=== PATIENT | male | born 1980 | race Caucasian/White ===

== ENCOUNTER 2017-04-09 15:55 | Emergency (ER) | payer BC ==
[2017-04-09] MEDS ORDERED: Ketorolac 60 MG/2 ML SDV IM ONE (16:22)
--- NOTE | 2017-04-09 16:28 | EDM.PDOC ---
ED HPI GENERAL MEDICAL PROBLEM - General Chief Complaint: Lower Extremity Injury/Pain Stated Complaint: RIGHT FOOT PAIN Time Seen by Provider: 04/09/17 16:16 - History of Present Illness INITIAL COMMENTS - FREE TEXT/NARRATIVE: HISTORY AND PHYSICAL: History of present illness: Patient is a 36-year-old male who presents with complaints of right foot pain after a 45-50 pound weight dropped on it yesterday while at work. He says that he felt pain initially and had a continue working and it swelled up and he tried to elevate and ice it and took some ibuprofen but it is still painful so he is here for evaluation. He has no proximal ankle or leg pain and no neurosensory changes in the foot. Patient says he was wearing steel toed boots so the toes do not hurt but the midfoot does. The patient has no other systemic complaints pre-or post this injury. Review of systems: As per history of present illness and below otherwise all systems reviewed and negative. Past medical history: As per history of present illness and as reviewed below otherwise noncontributory. Surgical history: As per history of present illness and as reviewed below otherwise noncontributory. Social history: No reported history of drug or alcohol abuse. Family history: As per history of present illness and as reviewed below otherwise noncontributory. Physical exam: General: Well-developed overweight male who is nontoxic and speaking clearly and easily in the ED. Vital signs been reviewed by me HEENT: Atraumatic, normocephalic, negative for conjunctival pallor or scleral icterus, mucous membranes moist, throat clear, neck supple, nontender, trachea midline. Lungs: Clear to auscultation, breath sounds equal bilaterally, chest nontender. Heart: S1S2, regular rate and rhythm no overt murmurs Abdomen: Soft, nondistended, nontender. NABS Pelvis: Stable nontender. Genitourinary: Deferred. Rectal: Deferred. Extremities: Atraumatic and full range of motion of all extremities with the exception of the right foot where there is soft tissue diffuse swelling on the dorsal aspect of the midfoot with some swelling of the toes but there is no tenderness at the toes. There is diffuse tenderness in the midfoot without crepitus or bony deformities. The ankle and proximal leg and the air without tenderness or defects. Neurovascular is intact in the foot. The legs are, negative for cords or calf pain. Neurovascular unremarkable. Neuro: Awake, alert, oriented. Cranial nerves II through XII unremarkable. Cerebellum unremarkable. Motor and sensory unremarkable throughout. Exam nonfocal. Diagnostics: X-ray right foot Therapeutics: Toradol ortho boot crutches Impression: Right foot contusion Definitive disposition and diagnosis as appropriate pending reevaluation and review of above. Right Foot Pain Score (Numeric/FACES): 9 - Related Data Allergies Allergy/AdvReac Type Severity Reaction Status Date / Time codeine Allergy Cannot Verified 04/09/17 16:09 Remember Home Meds: Home Meds . [No Known Home Meds] 01/07/14 [History] Past Medical History - Past Health History Medical/Surgical History: Denies Medical/Surgical History Social & Family History - Family History Family Medical History: Noncontributory - Tobacco Use Smoking Status *Q: Current Every Day Smoker Years of Tobacco use: 22 Packs/Tins Daily: 1 Used Tobacco, but Quit: Yes Month Tobacco Last Used: October - Alcohol Use Days Per Week of Alcohol Use: 0 - Recreational Drug Use Recreational Drug Use: No Review of Systems - Review of Systems Review Of Systems: ROS reveals no pertinent complaints other than HPI. ED EXAM, GENERAL - Physical Exam Exam: See Below (See dictation) Course - Vital Signs Last Recorded V/S: Last Vital Signs Temp 36.7 C 04/09/17 16:09 Pulse 66 04/09/17 16:09 Resp 18 04/09/17 16:09 BP 132/87 04/09/17 16:09 Pulse Ox 97 04/09/17 16:09 - Orders/Labs/Meds Orders: Active Orders 24 hr Category Date Time Status Foot Comp Min 3V Rt [CR] Stat Exams 04/09/17 16:22 Taken DME for Discharge [COMM] Stat Oth 04/09/17 17:24 Ordered Meds: Medications Discontinued Medications Generic Name Dose Route Start Last Admin Trade Name Freq PRN Reason Stop Dose Admin Ketorolac Tromethamine 60 mg 04/09/17 16:22 04/09/17 16:43 Toradol IM 04/09/17 16:23 60 mg ONETIME ONE Administration Departure - Departure Time of Disposition: 17:25 Disposition: Home, Self-Care 01 Condition: Good Clinical Impression: Contusion of foot Qualifiers: Encounter type: initial encounter Laterality: right Qualified Code(s): S90.31XA - Contusion of right foot, initial encounter - Discharge Information Referrals: PCP,None [Primary Care Provider] - Forms: ED Department Discharge Additional Instructions: The following information is given to patients seen in the emergency department who are being discharged to home. This information is to outline your options for follow-up care. We provide all patients seen in our emergency department with a follow-up referral. The need for follow-up, as well as the timing and circumstances, are variable depending upon the specifics of your emergency department visit. If you don't have a primary care physician on staff, we will provide you with a referral. We always advise you to contact your personal physician following an emergency department visit to inform them of the circumstance of the visit and for follow-up with them and/or the need for any referrals to a consulting specialist. The emergency department will also refer you to a specialist when appropriate. This referral assures that you have the opportunity for followup care with a specialist. All of these measure are taken in an effort to provide you with optimal care, which includes your followup. Under all circumstances we always encourage you to contact your private physician who remains a resource for coordinating your care. When calling for followup care, please make the office aware that this follow-up is from your recent emergency room visit. If for any reason you are refused follow-up, please contact the [facility] emergency department at and ask to speak to the emergency department charge nurse. [facility] Specialty clinic- Podiatry [address] [place] [id number] Fax: [phone] Dr Zina Sheth [address] [place] [phone] Ice and elevate the area as much as possible and wear the ortho boot at all times loosening or removing when you're sleeping. Please use crutches as much as possible to prevent weightbearing. Please contact one of our gas specialist using the resources given to above for follow-up care of this injury. Use over- the-counter ibuprofen/Aleve for the inflammation and pain and add the stronger pain medication you have been prescribed as needed. Please only take the tramadol when you're at home and not ever at work or when driving. Return to ER as needed and as discussed - My Orders Last 24 Hours: My Active Orders 04/09/17 16:22 Foot Comp Min 3V Rt [CR] Stat 04/09/17 17:24 DME for Discharge [COMM] Stat - Assessment/Plan Last 24 Hours: My Active Orders 04/09/17 16:22 Foot Comp Min 3V Rt [CR] Stat 04/09/17 17:24 DME for Discharge [COMM] Stat
[2017-04-09 17:46] VITALS: BP 115/82
--- NOTE | 2017-04-10 10:53 | CR ---
EXAM DATE: 04/09/17 PATIENT'S AGE: 36 Patient: KARIN HATCH Facility: [place], [place] Site . Site : 1980 Study: XRay Extremity foot [id number]/[id number] 4:54:37 PM Ordering Physician: Yamilet Stewart Final Report: INDICATION: Dropped 45 lb weight on foot TECHNIQUE: Foot radiograph 3 views right COMPARISON: None FINDINGS: Bones: Alignment is normal. No acute fractures or aggressive bone lesions identified. Joint spaces: Unremarkable. No ankle effusion is seen. Soft tissues: Mild dorsal swelling noted. Kager`s fat pad is normal in appearance. The visualized Achilles` tendon is unremarkable. No radiopaque foreign bodies are seen. IMPRESSION: 1. No acute osseous injuries are noted. Dictated by: Travis Rivers MD @ 04/09/2017 17:16:11 (Electronic Signature) Report Signed by Proxy. SUKI
== END 2017-04-09 17:41 | disposition home or self-care (01) ==
LOC: MW.ED 15:55
DX: S90.31XA Contusion of right foot, initial encounter (principal); F17.210 Nicotine dependence, cigarettes, uncomplicated; Z88.5 Allergy status to narcotic agent; W20.8XXA Other cause of strike by thrown, projected or falling object, initial encounter
CPT/HCPCS: 73630; 96372; 99283; J1885

== ENCOUNTER 2017-12-27 07:53 | Emergency (ER) | payer BC ==
[2017-12-27] MEDS ORDERED: Sodium Chloride 0.9% 2.5 ML Syringe FLUSH PRN (08:16)
[2017-12-27] MEDS ORDERED: Sodium Chloride 0.9% 10 ML Syringe FLUSH PRN (08:16)
[2017-12-27] MEDS ORDERED: Ketorolac 30 MG/ML SDV IVPUSH ONE (08:16)
[2017-12-27] MEDS ORDERED: Sodium Chloride 0.9% 1,000 ML IV ONE (08:16)
--- NOTE | 2017-12-27 08:21 | EDM.PDOC ---
ED HPI GENERAL MEDICAL PROBLEM - General Chief Complaint: General Stated Complaint: LIGHT-HEADED, NAUSEATED, SHAKY Time Seen by Provider: 12/27/17 08:03 - History of Present Illness INITIAL COMMENTS - FREE TEXT/NARRATIVE: HISTORY AND PHYSICAL: History of present illness: Patient is a 37-year-old male who presents with complaints of 4 days of feeling run down intermittently lightheaded nasal pressure occasional cough and just ill feeling. The patient has no pre-existing medical problems but does work in the [email or web address] and is from [place]. He said the weather here has been upsetting him due to the dryness and he has not taken any rfrj-zeo-aoyulmi antihistamines or antiallergy meds. Patient has been using [id number]-[id number] Advil Cold and Sinus combination drug and does not feel it is helping. The patient has been eating normally and does admit he drinks large amounts of caffeine on a daily basis, Mountain Dew, and does not hydrate. He's had no abdominal pain vomiting diarrhea chest pain or shortness of breath. He is a smoker. He is not passing out or blacking out but has a generalized weak feeling without focality. He has no discrete headache but does have some pressure. The patient denies that he has had any fevers or actual sinus drainage. The patient says that he has had a scratchy throat and it is a little sore but that is not one of his main complaints. Review of systems: As per history of present illness and below otherwise all systems reviewed and negative. Past medical history: As per history of present illness and as reviewed below otherwise noncontributory. Surgical history: As per history of present illness and as reviewed below otherwise noncontributory. Social history: No reported history of drug or alcohol abuse. Family history: As per history of present illness and as reviewed below otherwise noncontributory. Physical exam: General: Well-developed well-nourished mildly overweight man who is nontoxic and vital signs are reviewed by me. He has a slight nasal quality to his voice HEENT: Atraumatic, normocephalic, pupils reactive, negative for conjunctival pallor or scleral icterus, mucous membranes moist, throat clear of exudates but there is posterior oral pharyngeal erythema, no cervical adenopathy or nuchal rigidity, uvula is midline,, neck supple, nontender, trachea midline. Nasal turbinates are boggy bilaterally but there is only minimal maxillary sinus tenderness on palpation and no frontal sinus tenderness Lungs: Clear to auscultation, breath sounds equal bilaterally, chest nontender. Heart: S1S2, regular rate and rhythm no overt murmurs. Abdomen: Soft, nondistended, nontender. NABS Pelvis: Deferred Genitourinary: Deferred. Rectal: Deferred. Extremities: Atraumatic, negative for cords or calf pain. Neurovascular unremarkable. Neuro: Awake, alert, oriented. Cranial nerves II through XII unremarkable. Cerebellum unremarkable. Motor and sensory unremarkable throughout. Exam nonfocal. Diagnostics: CBC CMP rapid strep Therapeutics: IV fluids Toradol Impression: Strep pharyngitis, sinusitis/lightheadedness , history of large caffeine use Definitive disposition and diagnosis as appropriate pending reevaluation and review of above. headache Pain Score (Numeric/FACES): 7 - Related Data Allergies Allergy/AdvReac Type Severity Reaction Status Date / Time codeine Allergy Cannot Verified 12/27/17 08:05 Remember Home Meds: Home Meds . [No Known Home Meds] 01/07/14 [History] Past Medical History - Past Health History Medical/Surgical History: Denies Medical/Surgical History - Infectious Disease History Infectious Disease History: Reports: None - Past Surgical History Musculoskeletal Surgical History: Reports: Other (See Below) Other Musculoskeletal Surgeries/Procedures:: back surgery Social & Family History - Family History Family Medical History: Noncontributory - Tobacco Use Smoking Status *Q: Current Every Day Smoker Years of Tobacco use: 20 Packs/Tins Daily: 1 - Caffeine Use Caffeine Use: Reports: Soda, Tea - Recreational Drug Use Recreational Drug Use: No ED ROS GENERAL - Review of Systems Review Of Systems: ROS reveals no pertinent complaints other than HPI. ED EXAM, GENERAL - Physical Exam Exam: See Below (See dictation) Course - Vital Signs Last Recorded V/S: Last Vital Signs Temp 36.3 C 12/27/17 08:05 Pulse 81 12/27/17 08:05 Resp 20 12/27/17 08:05 BP 123/83 12/27/17 08:05 Pulse Ox 97 12/27/17 08:05 - Orders/Labs/Meds Orders: Active Orders 24 hr Category Date Time Status STREP SCRN A RAPID W CULT CONF [RM] Stat Lab 12/27/17 08:15 Ordered Sodium Chloride 0.9% [Saline Flush] Med 12/27/17 08:16 Active 10 ml FLUSH ASDIRECTED PRN Sodium Chloride 0.9% [Saline Flush] Med 12/27/17 08:16 Active 2.5 ml FLUSH ASDIRECTED PRN Saline Lock Insert [OM.PC] Stat Oth 12/27/17 08:15 Ordered Medication Orders Sodium Chloride (Saline Flush) 10 ml FLUSH ASDIRECTED PRN PRN Reason: Keep Vein Open Last Admin: 12/27/17 08:36 Dose: 10 ml Sodium Chloride (Saline Flush) 2.5 ml FLUSH ASDIRECTED PRN PRN Reason: Keep Vein Open Last Admin: 12/27/17 08:36 Dose: 2.5 ml Labs: Laboratory Tests 12/27/17 12/27/17 Range/Units 08:38 08:38 WBC 11.12 H (4.0-11.0) K/uL RBC 5.67 (4.50-5.90) M/uL Hgb 18.0 H (13.0-17.0) g/dL Hct 51.0 H (38.0-50.0) % MCV 89.9 (80.0-98.0) fL MCH 31.7 (27.0-32.0) pg MCHC 35.3 (31.0-37.0) g/dL RDW Std Deviation 43.2 (28.0-62.0) fl RDW Coeff of Albert 13 (11.0-15.0) % Plt Count 297 (150-400) K/uL MPV 8.70 (7.40-12.00) fL Neut % (Auto) 71.3 (48.0-80.0) % Lymph % (Auto) 20.8 (16.0-40.0) % [place] % (Auto) 7.1 (0.0-15.0) % Eos % (Auto) 0.5 (0.0-7.0) % Baso % (Auto) 0.3 (0.0-1.5) % Neut # (Auto) 7.9 H (1.4-5.7) K/uL Lymph # (Auto) 2.3 (0.6-2.4) K/uL [place] # (Auto) 0.8 (0.0-0.8) K/uL Eos # (Auto) 0.1 (0.0-0.7) K/uL Baso # (Auto) 0.0 (0.0-0.1) K/uL Nucleated RBC % 0.0 /100WBC Nucleated RBCs # 0 K/uL Sodium 137 (136-148) mmol/L Potassium 3.7 (3.5-5.1) mmol/L Chloride 104 (98-107) mmol/L Carbon Dioxide 25.3 (21.0-32.0) mmol/L BUN 9 (7.0-18.0) mg/dL Creatinine 1.1 (0.8-1.3) mg/dL Est Cr Clr Drug Dosing 96.98 mL/min Estimated GFR (MDRD) > 60.0 ml/min Glucose 99 (74-106) mg/dL Calcium 9.3 (8.5-10.1) mg/dL Total Bilirubin 1.0 (0.2-1.0) mg/dL AST 18 (15-37) IU/L ALT 33 (14-63) IU/L Alkaline Phosphatase 99 (46-116) U/L Total Protein 8.4 H (6.4-8.2) g/dL Albumin 4.1 (3.4-5.0) g/dL Globulin 4.3 H (2.0-3.5) g/dL Albumin/Globulin Ratio 1.0 L (1.3-2.8) Meds: Medications Generic Name Dose Route Start Last Admin Trade Name Freq PRN Reason Stop Dose Admin Sodium Chloride 10 ml 12/27/17 08:16 12/27/17 08:36 Saline Flush FLUSH 10 ml ASDIRECTED PRN Administration Keep Vein Open Sodium Chloride 2.5 ml 12/27/17 08:16 12/27/17 08:36 Saline Flush FLUSH 2.5 ml ASDIRECTED PRN Administration Keep Vein Open Discontinued Medications Generic Name Dose Route Start Last Admin Trade Name Freq PRN Reason Stop Dose Admin Sodium Chloride 1,000 mls @ 999 mls/hr 12/27/17 08:16 12/27/17 08:35 Normal Saline IV 12/27/17 09:16 999 mls/hr STAT ONE Administration Ketorolac Tromethamine 30 mg 12/27/17 08:16 12/27/17 08:35 Toradol IVPUSH 12/27/17 08:17 30 mg ONETIME ONE Administration Departure - Departure Time of Disposition: 09:43 Disposition: Home, Self-Care 01 Condition: Good Clinical Impression: Lightheadedness, Strep pharyngitis Sinusitis Qualifiers: Sinusitis location: unspecified location Chronicity: unspecified Qualified Code (s): J32.9 - Chronic sinusitis, unspecified - Discharge Information Referrals: PCP,None [Primary Care Provider] - Forms: ED Department Discharge Additional Instructions: The following information is given to patients seen in the emergency department who are being discharged to home. This information is to outline your options for follow-up care. We provide all patients seen in our emergency department with a follow-up referral. The need for follow-up, as well as the timing and circumstances, are variable depending upon the specifics of your emergency department visit. If you don't have a primary care physician on staff, we will provide you with a referral. We always advise you to contact your personal physician following an emergency department visit to inform them of the circumstance of the visit and for follow-up with them and/or the need for any referrals to a consulting specialist. The emergency department will also refer you to a specialist when appropriate. This referral assures that you have the opportunity for followup care with a specialist. All of these measure are taken in an effort to provide you with optimal care, which includes your followup. Under all circumstances we always encourage you to contact your private physician who remains a resource for coordinating your care. When calling for followup care, please make the office aware that this follow-up is from your recent emergency room visit. If for any reason you are refused follow-up, please contact the [facility] emergency department at and ask to speak to the emergency department charge nurse. [facility] Primary care- Internal Medicine and Family [address] [address] Please try to reduce and/or eliminate caffeine use and push more hydrating fluids. Use [id number] Tylenol or ibuprofen for body aches and fevers. Please also use dshc-pyl-[id number] Claritin or [place] to help with the sinus pressure and congestion and zdtx-myu-sdzfibv Flonase nasal spray to help open up the nasal passages. These take all medications as prescribed and follow-up with your provider at home or one of our clinic providers for reevaluation and further care. Return to ER as needed and as discussed - My Orders Last 24 Hours: My Active Orders 12/27/17 08:15 STREP SCRN A RAPID W CULT CONF [RM] Stat Saline Lock Insert [OM.PC] Stat 12/27/17 08:16 Sodium Chloride 0.9% [Saline Flush] 10 ml FLUSH ASDIRECTED PRN Sodium Chloride 0.9% [Saline Flush] 2.5 ml FLUSH ASDIRECTED PRN - Assessment/Plan Last 24 Hours: My Active Orders 12/27/17 08:15 STREP SCRN A RAPID W CULT CONF [RM] Stat Saline Lock Insert [OM.PC] Stat 12/27/17 08:16 Sodium Chloride 0.9% [Saline Flush] 10 ml FLUSH ASDIRECTED PRN Sodium Chloride 0.9% [Saline Flush] 2.5 ml FLUSH ASDIRECTED PRN
[2017-12-27 09:22] LABS: CHLORIDE,CL 104 mmol/L (98-107); SODIUM,NA 137 mmol/L (136-148)
[2017-12-27 10:09] VITALS: BP 113/71
== END 2017-12-27 10:02 | disposition home or self-care (01) ==
LOC: MW.ED 07:53
DX: J02.0 Streptococcal pharyngitis (principal); F17.210 Nicotine dependence, cigarettes, uncomplicated; Z88.5 Allergy status to narcotic agent
CPT/HCPCS: 36415; 80053; 85025; 87880; 96361; 96374; 99283; J1885; J7040